=== PATIENT | female | born 1955 | race Asian ===

== ENCOUNTER 2019-12-22 09:04 | Day surgery (SDC) | payer OTHER ==
[~2019-12-22] VITALS: Ht 149.9 cm; Wt 87.1 kg
== END 2019-12-22 13:20 | disposition home or self-care (01) ==
LOC: OR 09:04
PROC: 3E0R33Z Introduction of Anti-inflammatory into Spinal Canal, Percutaneous Approach (ICD-10-PCS; principal; 2019-12-22)
PROC: B01BYZZ Fluoroscopy of Spinal Cord using Other Contrast (ICD-10-PCS; 2019-12-22)
DX: M51.16 Intervertebral disc disorders with radiculopathy, lumbar region (principal)
CPT/HCPCS: J1020